=== PATIENT | female | born 1995 | race Caucasian/White ===

== ENCOUNTER 2017-03-24 17:02 | Emergency (ER) | payer BC ==
--- NOTE | 2017-03-24 19:14 | ED CLINICAL REPORT ---
Clinical Report - Physicians/Mid Levels [facility] [address] [place] [address] 03/24/2017 17:03 Patient: MARIA ELENA HENNESSY Time Seen: 17:19. Arrived- By private vehicle. Historian- patient. Note: . HISTORY OF PRESENT ILLNESS Chief Complaint: VOMITING and DIARRHEA. This started yesterday and is still present. It was gradual in onset and has been waxing/waning. The patient has had nausea. She has had vomiting. The vomiting has occurred numerous times. No blood-tinged emesis or frankly bloody emesis. She has had moderate loose stools. No bloody or blood-tinged diarrhea. No black stools, bloody stools, abdominal pain, history of possible bad food exposure or known contact with a sick individual. Has not recently been camping or on antibiotics. The illness is described as moderate. Similar symptoms previously: Recent medical care: Not recently seen/assessed. REVIEW OF SYSTEMS Last normal menstrual period- February 02. No fever, muscle aches, difficulty with urination, dark urine or headache. No dizziness, sore throat, cough, chest pain or difficulty breathing. No excessive urination, skin rash, jaundice, back pain or fainting episodes. The patient has missed periods. Currently . All systems otherwise negative, except as recorded above. PAST HISTORY PCP: [facility] PROBLEMS: Viral Disease. GERD. Depression. Anxiety Reaction. ADDITIONAL SURGERIES: Tonsillectomy & Adenoidectomy. [place] teeth removed. SOCIAL HISTORY Former smoker (quit 1 week ago). History of drug use: marijuana. No alcohol use. Residence: [place]. ADDITIONAL NOTES The nursing notes have been reviewed. PHYSICAL EXAM Vital Signs: 03/24/2017 17:09 BP: 110/64. HR: 59. RR: 18. O2 saturation: 100%. Temp: 97.9 F. Appearance: Alert. Oriented X3. Patient in mild distress. Eyes: Pupils equal, round and reactive to light. Eyes normal inspection. No pale conjunctivae or scleral icterus. ENT: Pharynx normal. No pharyngeal erythema or tonsillar exudate. The mucous membranes are not dry. Neck: Normal inspection. Neck supple. CVS: Normal heart rate and rhythm. Heart sounds normal. Pulses normal. Respiratory: No respiratory distress. Breath sounds normal. Abdomen: Soft. Mild tenderness diffusely. No guarding, rebound tenderness or Koehler's sign present. No mass. No rebound tenderness, distention, mass present or guarding. Back: Normal inspection. Skin: Skin warm and dry. Normal skin color. No rash. Normal skin turgor. Extremities: Extremities exhibit normal ROM. No lower extremity edema. Neuro: Oriented X 3. No motor deficit. No sensory deficit. LABS, X-RAYS, AND EKG Laboratory Tests: UA-Culture if indicated: (LONA: 03/24/2017 18:20) ( [facility] [place] 03/24/2017 18:39) Final results Test Result Flag Units (Reference) URINE COLOR YELLOW URINE APPEARANCE CLEAR URINE GLUCOSE NEGATIVE (NEGATIVE) URINE BILIRUBIN NEGATIVE (NEGATIVE) URINE KETONE 3+ (NEGATIVE) URINE SPECIFIC GRAVITY 1.020 (1.010-1.030) URINE PH 8.0 (5.0-8.0) URINE PROTEIN NEGATIVE (NEGATIVE) URINE UROBILINOGEN 1.0 EU/dL (0.2-1.0) URINE NITRITE NEGATIVE (NEGATIVE) URINE BLOOD NEGATIVE (NEGATIVE) URINE LEUK ESTERASE NEGATIVE (NEGATIVE) URINE RBC RARE rbc/hpf (0-1) URINE WBC 1-3 wbc/hpf (0-1) URINE EPITHELIAL CELLS 0-1 EPI/hpf (0-5) URINE BACTERIA MODERATE (2+ TO 3+) (NONE SEEN) URINE COMMENT CULTURE INDICATED 3+ MUCUSURINE CULTURES ARE SET-UP BASED ON THE FOLLOWING CRITERIA:POSITIVE NITRITEPOSITIVE LEUKOCYTE ESTERASEGREATER THAN 10 WHITE BLOOD CELLSMODERATE (2+) OR GREATER BACTERIA CBC w Diff: (LONA: 03/24/2017 17:25) ( [facility] [place] 03/24/2017 18:21) Final results Test Result Flag Units (Reference) WHITE BLOOD COUNT 16.4 H K/uL (4.5-11.5) RED BLOOD COUNT 4.09 M/uL (4.00-5.20) HEMOGLOBIN 12.6 gm/dL (12.0-16.0) HEMATOCRIT 37.1 % (36.0-46.0) MEAN CELL VOLUME 91 fL (80-100) MEAN CORPUSCULAR HGB 31 pg (26-34) MEAN CORPUSCULAR HGB CONC 34 g/dL (31-37) RED CELL DISTRIBUTION WIDTH 12.3 % (11.6-14.8) PLATELET COUNT 343 K/uL (150-400) POLY % 93 H % (50-75) BAND % 2 % (0-8) LYMPH 4 L % (25-40) MONO 1 L % (3-14) EOSINOPHIL % 0 % (0-4) BASOPHIL % 0 % (0-2) METAMYELOCYTE % 0 % (0-1) MYELOCYTE 0 % (0-1) OTHER CELL TYPE 0 RBC MORPHOLOGY NORMOCYTIC~~NORMOCHROMIC PT with INR: (LONA: 03/24/2017 17:25) ( [facility] 03/24/2017 17:48) Final results Test Result Flag Units (Reference) INR 1.0 (0.8-1.2) Low Intensity Therapy: INR 1.5-2.0 PT range 18.5-23.1Mod.Intensity Therapy: INR 2.0-3.0 PT range 23.1-31.5High Intensity Therapy: INR 2.5-3.5 PT range 27.4-35.5High Intensity Therapy 2: INR 3.0-4.0 PT range 31.5-39.3 CMP: (LONA: 03/24/2017 17:25) ( [facility] 03/24/2017 18:02) Final results Test Result Flag Units (Reference) GLUCOSE 125 H mg/dL (70-110) BUN 8 mg/dL (7-18) CREATININE 0.9 mg/dL (0.6-1.3) Estimated GFR >60 mL/min Estimated GFR- >60 mL/min Note: Persistent reduction over 3 months in eGFR<60 mL/min/1.73 m2 defines CKD. Patients with eGFR values>=60 mL/min/1.73 m2 may also have CKD if evidence ofpersistent proteinuria. Additional information may be foundat [email or web address].org. SODIUM 136 mmol/L (136-145) POTASSIUM 3.3 L mmol/L (3.5-5.1) CHLORIDE 103 mmol/L (98-107) CARBON DIOXIDE 23 mmol/L (21-32) CALCIUM 9.2 mg/dL (8.5-10.1) TOTAL PROTEIN 7.4 g/dL (6.4-8.2) ALBUMIN 4.3 g/dL (3.3-5.0) BILIRUBIN, TOTAL 0.4 mg/dL (0.0-1.0) ALKALINE PHOSPHATASE 53 U/L (46-116) AST (SGOT) 13 L U/L (15-37) ALT (SGPT) 17 U/L (12-78) LIPASE 76 U/L (73-393) AMYLASE 51 U/L (25-115) ETHYL ALCOHOL < 3.0 L mg/dL (3-10) . Microbiology: Urine culture ordered. Pulse Oximetry: 03/24/2017 17:09 O2 saturation: 100%. (FIO2 - room air). Interpretation: normal. PROGRESS AND PROCEDURES Course of Care: Normal Saline 2 liters IVPB given. Potassium Chloride 20 meq PO given. Zofran 4 mg + 4 mg IVP given. Reglan 10 mg IVP given. Ceftriaxone 1gm IVP given. Nonsurgical abdominal exam - in fact, only mild generalized tenderness (no pain). Leukocytosis is c/w demargination from stress reaction / vomiting, but will need to be monitored / rechecked closely. She will have next day follow up with her pcp at [facility] (has excellent access to care). Symptomatic treatment for now. This is not c/w appy or jil or other surgical process now. 18:41 03/24/17. Urine with moderate bacteriuria and in setting of , I will treat (may be contamination as pt is essentially asymptomatic) 19:14 03/24/17. Patient is stable. Physical exam findings are improved. Symptoms much better. 03/24/2017 18:56 BP: 108/54. HR: 93. RR: 18. O2 saturation: 100%. Temp: 98.6 F. 03/24/2017 18:56 BP: 108/54. HR: 93. RR: 18. O2 saturation: 100%. Temp: 98.6 F. Patient/family counseled. Old ED records reviewed. Disposition: Discharged. Condition: stable and improved. CLINICAL IMPRESSION Vomiting with nausea. Diarrhea First trimester . Moderate hyperemesis gravidarum less than 21 weeks with electrolyte imbalance. Acute urinary tract infection with cystitis. Chronic substance abuse- tobacco (cigarettes), marijuana. No intoxication. Hypokalemia Moderate leukocytosis. No bandemia or lymphocytosis. Clinical picture does not suggest appendicitis, bowel obstruction, cholecystitis, pancreatitis or ectopic . INSTRUCTIONS Do not work for three days. Drink plenty of fluids. Do not smoke. Seek medical help to quit smoking. Warnings: Further evaluation is necessary in order to recheck abnormal lab, obtain test results and conduct further tests. It is very important to follow up with a physician. SEDATIVE MEDICATION: You were given sedative medication during your visit. Do not drive or operate dangerous machinery. GENERAL WARNINGS: Return or contact your physician immediately if your condition worsens or changes unexpectedly, if not improving as expected, or if other problems arise. Prescription Medications: Zofran (orally disintegrating tablets) 4 mg: take 1-2 orally every 8 hours as needed for nausea and vomiting. Dispense ten (10). No refill. Substitution is permissible. Macrobid 100 mg: Take 1 capsule orally every 12 hours for 7 days. No refills. Substitution is permissible. OTC Medications: Take acetaminophen (Tylenol, Datril, etc.) according to label instructions. Available over the counter. Follow-up: Follow up with your doctor at [facility]. (Electronically signed by Reed Potter DO 03/24/2017 22:01)
--- NOTE | 2017-03-24 19:14 | ED CLINICAL REPORT ---
Clinical Report - Physicians/Mid Levels [facility] [address] [place] [address] 03/24/2017 17:03 Patient: MARIA ELENA HENNESSY Time Seen: 17:19. Arrived- By private vehicle. Historian- patient. Note: . HISTORY OF PRESENT ILLNESS Chief Complaint: VOMITING and DIARRHEA. This started yesterday and is still present. It was gradual in onset and has been waxing/waning. The patient has had nausea. She has had vomiting. The vomiting has occurred numerous times. No blood-tinged emesis or frankly bloody emesis. She has had moderate loose stools. No bloody or blood-tinged diarrhea. No black stools, bloody stools, abdominal pain, history of possible bad food exposure or known contact with a sick individual. Has not recently been camping or on antibiotics. The illness is described as moderate. Similar symptoms previously: Recent medical care: Not recently seen/assessed. REVIEW OF SYSTEMS Last normal menstrual period- February 02. No fever, muscle aches, difficulty with urination, dark urine or headache. No dizziness, sore throat, cough, chest pain or difficulty breathing. No excessive urination, skin rash, jaundice, back pain or fainting episodes. The patient has missed periods. Currently . All systems otherwise negative, except as recorded above. PAST HISTORY PCP: [facility] PROBLEMS: Viral Disease. GERD. Depression. Anxiety Reaction. ADDITIONAL SURGERIES: Tonsillectomy & Adenoidectomy. [place] teeth removed. SOCIAL HISTORY Former smoker (quit 1 week ago). History of drug use: marijuana. No alcohol use. Residence: [place]. ADDITIONAL NOTES The nursing notes have been reviewed. PHYSICAL EXAM Vital Signs: 03/24/2017 17:09 BP: 110/64. HR: 59. RR: 18. O2 saturation: 100%. Temp: 97.9 F. Appearance: Alert. Oriented X3. Patient in mild distress. Eyes: Pupils equal, round and reactive to light. Eyes normal inspection. No pale conjunctivae or scleral icterus. ENT: Pharynx normal. No pharyngeal erythema or tonsillar exudate. The mucous membranes are not dry. Neck: Normal inspection. Neck supple. CVS: Normal heart rate and rhythm. Heart sounds normal. Pulses normal. Respiratory: No respiratory distress. Breath sounds normal. Abdomen: Soft. Mild tenderness diffusely. No guarding, rebound tenderness or Koehler's sign present. No mass. No rebound tenderness, distention, mass present or guarding. Back: Normal inspection. Skin: Skin warm and dry. Normal skin color. No rash. Normal skin turgor. Extremities: Extremities exhibit normal ROM. No lower extremity edema. Neuro: Oriented X 3. No motor deficit. No sensory deficit. LABS, X-RAYS, AND EKG Laboratory Tests: UA-Culture if indicated: (LONA: 03/24/2017 18:20) ( [facility] [place] 03/24/2017 18:39) Final results Test Result Flag Units (Reference) URINE COLOR YELLOW URINE APPEARANCE CLEAR URINE GLUCOSE NEGATIVE (NEGATIVE) URINE BILIRUBIN NEGATIVE (NEGATIVE) URINE KETONE 3+ (NEGATIVE) URINE SPECIFIC GRAVITY 1.020 (1.010-1.030) URINE PH 8.0 (5.0-8.0) URINE PROTEIN NEGATIVE (NEGATIVE) URINE UROBILINOGEN 1.0 EU/dL (0.2-1.0) URINE NITRITE NEGATIVE (NEGATIVE) URINE BLOOD NEGATIVE (NEGATIVE) URINE LEUK ESTERASE NEGATIVE (NEGATIVE) URINE RBC RARE rbc/hpf (0-1) URINE WBC 1-3 wbc/hpf (0-1) URINE EPITHELIAL CELLS 0-1 EPI/hpf (0-5) URINE BACTERIA MODERATE (2+ TO 3+) (NONE SEEN) URINE COMMENT CULTURE INDICATED 3+ MUCUSURINE CULTURES ARE SET-UP BASED ON THE FOLLOWING CRITERIA:POSITIVE NITRITEPOSITIVE LEUKOCYTE ESTERASEGREATER THAN 10 WHITE BLOOD CELLSMODERATE (2+) OR GREATER BACTERIA CBC w Diff: (LONA: 03/24/2017 17:25) ( [facility] [place] 03/24/2017 18:21) Final results Test Result Flag Units (Reference) WHITE BLOOD COUNT 16.4 H K/uL (4.5-11.5) RED BLOOD COUNT 4.09 M/uL (4.00-5.20) HEMOGLOBIN 12.6 gm/dL (12.0-16.0) HEMATOCRIT 37.1 % (36.0-46.0) MEAN CELL VOLUME 91 fL (80-100) MEAN CORPUSCULAR HGB 31 pg (26-34) MEAN CORPUSCULAR HGB CONC 34 g/dL (31-37) RED CELL DISTRIBUTION WIDTH 12.3 % (11.6-14.8) PLATELET COUNT 343 K/uL (150-400) POLY % 93 H % (50-75) BAND % 2 % (0-8) LYMPH 4 L % (25-40) MONO 1 L % (3-14) EOSINOPHIL % 0 % (0-4) BASOPHIL % 0 % (0-2) METAMYELOCYTE % 0 % (0-1) MYELOCYTE 0 % (0-1) OTHER CELL TYPE 0 RBC MORPHOLOGY NORMOCYTIC~~NORMOCHROMIC PT with INR: (LONA: 03/24/2017 17:25) ( [facility] 03/24/2017 17:48) Final results Test Result Flag Units (Reference) INR 1.0 (0.8-1.2) Low Intensity Therapy: INR 1.5-2.0 PT range 18.5-23.1Mod.Intensity Therapy: INR 2.0-3.0 PT range 23.1-31.5High Intensity Therapy: INR 2.5-3.5 PT range 27.4-35.5High Intensity Therapy 2: INR 3.0-4.0 PT range 31.5-39.3 CMP: (LONA: 03/24/2017 17:25) ( [facility] 03/24/2017 18:02) Final results Test Result Flag Units (Reference) GLUCOSE 125 H mg/dL (70-110) BUN 8 mg/dL (7-18) CREATININE 0.9 mg/dL (0.6-1.3) Estimated GFR >60 mL/min Estimated GFR- >60 mL/min Note: Persistent reduction over 3 months in eGFR<60 mL/min/1.73 m2 defines CKD. Patients with eGFR values>=60 mL/min/1.73 m2 may also have CKD if evidence ofpersistent proteinuria. Additional information may be foundat [email or web address].org. SODIUM 136 mmol/L (136-145) POTASSIUM 3.3 L mmol/L (3.5-5.1) CHLORIDE 103 mmol/L (98-107) CARBON DIOXIDE 23 mmol/L (21-32) CALCIUM 9.2 mg/dL (8.5-10.1) TOTAL PROTEIN 7.4 g/dL (6.4-8.2) ALBUMIN 4.3 g/dL (3.3-5.0) BILIRUBIN, TOTAL 0.4 mg/dL (0.0-1.0) ALKALINE PHOSPHATASE 53 U/L (46-116) AST (SGOT) 13 L U/L (15-37) ALT (SGPT) 17 U/L (12-78) LIPASE 76 U/L (73-393) AMYLASE 51 U/L (25-115) ETHYL ALCOHOL < 3.0 L mg/dL (3-10) . Microbiology: Urine culture ordered. Pulse Oximetry: 03/24/2017 17:09 O2 saturation: 100%. (FIO2 - room air). Interpretation: normal. PROGRESS AND PROCEDURES Course of Care: Normal Saline 2 liters IVPB given. Potassium Chloride 20 meq PO given. Zofran 4 mg + 4 mg IVP given. Reglan 10 mg IVP given. Ceftriaxone 1gm IVP given. Nonsurgical abdominal exam - in fact, only mild generalized tenderness (no pain). Leukocytosis is c/w demargination from stress reaction / vomiting, but will need to be monitored / rechecked closely. She will have next day follow up with her pcp at [facility] (has excellent access to care). Symptomatic treatment for now. This is not c/w appy or jil or other surgical process now. 18:41 03/24/17. Urine with moderate bacteriuria and in setting of , I will treat (may be contamination as pt is essentially asymptomatic) 19:14 03/24/17. Patient is stable. Physical exam findings are improved. Symptoms much better. 03/24/2017 18:56 BP: 108/54. HR: 93. RR: 18. O2 saturation: 100%. Temp: 98.6 F. 03/24/2017 18:56 BP: 108/54. HR: 93. RR: 18. O2 saturation: 100%. Temp: 98.6 F. Patient/family counseled. Old ED records reviewed. Disposition: Discharged. Condition: stable and improved. CLINICAL IMPRESSION Vomiting with nausea. Diarrhea First trimester . Moderate hyperemesis gravidarum less than 21 weeks with electrolyte imbalance. Acute urinary tract infection with cystitis. Chronic substance abuse- tobacco (cigarettes), marijuana. No intoxication. Hypokalemia Moderate leukocytosis. No bandemia or lymphocytosis. Clinical picture does not suggest appendicitis, bowel obstruction, cholecystitis, pancreatitis or ectopic . INSTRUCTIONS Do not work for three days. Drink plenty of fluids. Do not smoke. Seek medical help to quit smoking. Warnings: Further evaluation is necessary in order to recheck abnormal lab, obtain test results and conduct further tests. It is very important to follow up with a physician. SEDATIVE MEDICATION: You were given sedative medication during your visit. Do not drive or operate dangerous machinery. GENERAL WARNINGS: Return or contact your physician immediately if your condition worsens or changes unexpectedly, if not improving as expected, or if other problems arise. Prescription Medications: Zofran (orally disintegrating tablets) 4 mg: take 1-2 orally every 8 hours as needed for nausea and vomiting. Dispense ten (10). No refill. Substitution is permissible. Macrobid 100 mg: Take 1 capsule orally every 12 hours for 7 days. No refills. Substitution is permissible. OTC Medications: Take acetaminophen (Tylenol, Datril, etc.) according to label instructions. Available over the counter. Follow-up: Follow up with your doctor at [facility]. (Electronically signed by Reed Potter DO 03/24/2017 22:01)
--- NOTE | 2017-03-24 19:15 | ED ORDER SUMMARY ---
..... Patient: MARIA ELENA HENNESSY OrderSheet [facility] VisitID: [id number] [place] [address] 21y, F Registration Date/Time: 03/24/2017 ORDER SHEET Weight: 58.9 kg (stated) Allergies: No Known Drug Allergy GENERAL ORDERS: CBC w Diff Urgent ([facility] (Ack 17:39 PWeiler ER Tech1) (17:40 JSimbeck R.N.) CMP Urgent (17:03/24/2017 [facility] (Ack 17:39 PWeiler ER Tech1) (17:40 JSimbeck R.N.) UA-Culture if indicated [facility]2017 [facility] (Ack 17:39 PWeiler ER Tech1) (18:28 ALawrence ER Tech1) Amylase Urgent (17:03/24/2017 [facility]) (Ack 17:39 PWeiler ER Tech1) (17:40 JSimbeck R.N.) Lipase Urgent (17:03/24/2017 [facility] (Ack 17:39 PWeiler ER Tech1) (17:40 JSimbeck R.N.) Ethyl Alcohol Urgent (17:03/24/2017 [facility] (Ack 17:39 PWeiler ER Tech1) (17:40 JSimbeck R.N.) Urine Urgent (17:03/24/2017 [facility] (Ack 17:39 PWeiler ER Tech1) (18:28 ALawrence ER Tech1) Urine Drug Screen Urgent (17:03/24/2017 [facility] (Ack 17:39 PWeiler ER Tech1) (18:28 ALawrence ER Tech1) PT with INR Urgent (17:03/24/2017 [facility] (Ack 17:39 PWeiler ER Tech1) (17:40 JSimbeck R.N.) NPO (17:03/24/2017 [facility]) (17:40 MWinterer R.N.) (17:41 Johnathon R.N.) (Cancelled: Other18:05 [facility]) Serum Quantitative Urgent (18:01 03/24/2017 [facility]) (Ack 18:03 PWeiler ER Tech1) (18:28 ALawrence ER Tech1) MEDICATION ORDERS: Potassium Chloride PO 20 meq (NOW) (18:00 03/24/2017 [facility]) (18:04 LWhalen R.N.) IV FLUIDS: Zofran IV 4 mg (NOW) (17:20 03/24/2017 [facility]) (17:28 LWhalen R.N.) IV NS : initial bolus 1000 mL (1000 mL/hr), then 250 mL/hr for X2 (NOW) (17:21 03/24/2017 [facility]) (17:28 LWhalen R.N.) Zofran IV 4 mg (NOW) (18:09 03/24/2017 [facility]) (18:18 LWhalen R.N.) Reglan IV 10 mg (NOW) (18:09 03/24/2017 [facility]) (18:18 LWhalen R.N.) Ceftriaxone IV 1 gm/50mL (NOW) (18:40 03/24/2017 [facility]) (18:45 LWhalen R.N.) ORDER SHEET NOTES: [Electronically signed by Sheriff Zbigniew Cespedes (19:33 03/24/2017)] [Electronically signed by Reed Potter DO (22:01 03/24/2017)] [Electronically locked/signed by Sheriff Zbigniew Cespedes (19:33 03/24/2017)]
--- NOTE | 2017-03-24 19:15 | ED NURSING NOTES ---
Clinical Report - Nurses [facility] [address] [place] [address] 03/24/2017 17:03 Patient: MARIA ELENA HENNESSY TRIAGE Triage time 17:Mar 24 2017. Acuity: LEVEL 3. Chief Complaint: NAUSEA, VOMITING and DIARRHEA. PAUL COMA SCORE: [place] Coma Scale: 15- eyes open spontaneously (4); best verbal response- oriented x 4 (5); best motor response- obeys commands (6). --17:13 Renny Haddad R.N. 17:09 03/24/17. BP: 110/64. HR: 59. RR: 18. O2 saturation: 100%. Temp: 97.9 F. Pain level now 6/10. --17:13 Renny Haddad R.N. Weight: 58.9 kg stated. Height/Length: 65 inches Per Patient. BMI: 21.6. Growth Chart Percentile: Weight: 55.2%. Height/Length: 60.5%. --17:10 Renny Haddad R.N. Medications None. --17:10 Renny Haddad R.N. Allergies No Known Drug Allergy. --17:10 Renny Haddad R.N. History Arrived by private vehicle. Historian: patient. Accompanied by family. This started yesterday. She has had nausea, vomiting and diarrhea. No constipation, abdominal pain or fever. Last oral intake by patient was dinner. Treatment BEHAVIOR SUPPORT SPECIALIST: None. PAST MEDICAL HX: Gastroesophageal reflux disease. Immunizations: up-to-date. Last normal menstrual period- February 02. SOCIAL HX: Former smoker (quit a weeks ago). History of drug use: marijuana. No alcohol use. No recent travel. No known contact with a sick individual. SELF HARM ASSESSMENT: A self harm assessment was performed. The patient answered "yes" to the question "Have you recently felt down, depressed, or hopeless?" and "no" to the question "Do you have thoughts of harming or killing yourself?". FALL RISK ASSESSMENT: Fall risk assessment completed. No fall risk identified. NUTRITIONAL RISK ASSESSMENT: The nutritional risk assessment revealed no deficiencies. FUNCTIONAL ASSESSMENT: Functional assessment: no impairments noted. LEARNING NEEDS ASSESSMENT: The learning needs assessment revealed no barriers. ABUSE ASSESSMENT: Abuse assessment: (yes) The patient was asked "Do you feel safe in your home?". SKIN INTEGRITY ASSESSMENT: Skin integrity risk assessment completed. No skin integrity risk identified. --17:13 Renny Haddad R.N. PROBLEMS: Viral Disease. GERD. Depression. Anxiety Reaction. --17:10 Renny Haddad R.N. ADDITIONAL SURGERIES: Tonsillectomy & Adenoidectomy. --17:10 Renny Haddad R.N. Frakes teeth 2016. --17:26 Renny Haddad R.N. The following entry was struck by Renny Haddad R.N., 17:26 Reason - other <<STRICKEN ENTRY-- Frakes teeth removed a week ago. --20:51 Renny Haddad R.N. --END STRIKE>>. Interventions ID band on patient. --17:13 Renny Haddad R.N. PHYSICAL ASSESSMENT Ambulatory to room. ( c/o mid lower back pain.). GENERAL / NEURO / PSYCH: Alert. Oriented X 4. Appears anxious. HEENT: Mucous membranes are pink. RESPIRATORY: Respirations not labored. Breath sounds within normal limits. CVS: Normal sinus rhythm noted. Capillary refill less than 2 seconds. GI / : The patient has had nausea. Emesis noted. Abdomen soft and nontender. Bowel sounds within normal limits. Normal genitalia. Stool color normal. Stool heme negative. (POC test reference range: negative). SKIN: Skin is warm and dry. --17:14 Renny Haddad R.N. NURSING PROGRESS NOTES The initial plan of care for this patient includes an assessment with efforts to address patient positioning, appropriate ambient lighting and comfortable environmental temperature. Pulse oximeter and NIBP monitor placed on patient. Patient gowned. Head of bed elevated 60 degrees. Reassurance given. Call light placed in reach. Side rails up x 1. Bed placed in lowest position. Brakes of bed on. --17:14 Renny Haddad R.N. 17:17 03/24/2017 Site #1 started via IV in the right antecubital space with an 20g angiocath, with aseptic technique and good blood return; one attempt. Blood drawn: rainbow set. Labeled in the presence of the patient and sent to the lab. Saline lock flushed with 10 mL saline. --17:27 Renny Haddad R.N. 17:23 03/24/2017 Zofran (Ondansetron HCl) IVP 4 mg given over 2 minute(s) via site #1. Allergies verified and confirmed 5 rights. IV patency established. IV site checked: no pain, redness, or swelling. IV flushed thoroughly pre- and post-medication administration. --17:28 Renny Haddad R.N. 17:28 03/24/2017 Started bag #1 1000 mL IV Fluids IV NS (Saline); at 1000 mL/hr over 1 hour(s) via site #1 via IV pump. Allergies verified and confirmed 5 rights. IV patency established. IV site checked: no pain, redness, or swelling. IV flushed thoroughly pre- and post-medication administration. --17:28 Renny Haddad R.N. 17:52 03/24/2017 Started bag #1 1000 mL IV Fluids IV NS (Saline); at 250 mL/hr over 4 hour(s) via site #1 via IV pump. Allergies verified and confirmed 5 rights. IV patency established. IV site checked: no pain, redness, or swelling. IV flushed thoroughly pre- and post-medication administration. --17:52 Renny Haddad R.N. 17:52 03/24/2017 IV Fluids IV NS Discontinued: bag #1 infused. Total amount infused: 1000 mL. IV patency established. IV site checked: no pain, redness, or swelling. IV flushed thoroughly. --17:52 Renny Haddad R.N. 18:04 03/24/2017 Potassium Chloride (Potassium Chloride ER) PO Tablets 20 meq given. Allergies verified and confirmed 5 rights. --18:04 Renny Haddad R.N. 18:18 03/24/2017 Zofran (Ondansetron HCl) IVP 4 mg given over 2 minute(s) via site #1. Allergies verified and confirmed 5 rights. IV patency established. IV site checked: no pain, redness, or swelling. IV flushed thoroughly pre- and post-medication administration. --18:18 Renny Haddad R.N. 18:18 03/24/2017 Reglan (Metoclopramide HCl) IVP 10 mg given over 2 minute(s) via site #1. Allergies verified and confirmed 5 rights. IV patency established. IV site checked: no pain, redness, or swelling. IV flushed thoroughly pre- and post-medication administration. --18:18 Renny Haddad R.N. 18:45 03/24/2017 Started 1 gm of Ceftriaxone IVPB in bag #1 50 mL; at 100 mL/hr over 1 hour(s) via site #1 via IV pump. Allergies verified and confirmed 5 rights. IV patency established. IV site checked: no pain, redness, or swelling. IV flushed thoroughly pre- and post-medication administration. --18:45 Renny Haddad R.N. DISPOSITION / DISCHARGE 18:56 03/24/17. BP: 108/54. HR: 93. RR: 18. O2 saturation: 100%. Temp: 98.6 F. Pain level now 2/10. --18:57 Renny Haddad R.N. Condition at departure: stable. No learning barriers present. Discharge instructions provided and reviewed with the patient. Reviewed medication(s) side effects, precautions, dosing and course information. Prescription(s) given to the parent. Patient verbalized understanding. Written instructions provided in Guamanian. The patient was discharged by the physician. She was discharged home and accompanied by family. She left the Emergency Department ambulatory and via private vehicle. Family member driving. --19:32 Sheriff Cespedes R.N. Locked/Released at 03/24/2017 19:33 by Sheriff Cespedes R.N.
--- NOTE | 2017-03-24 19:15 | ED ORDER SUMMARY ---
..... Patient: MARIA ELENA HENNESSY OrderSheet [facility] VisitID: [id number] [place] [address] 21y, F Registration Date/Time: 03/24/2017 ORDER SHEET Weight: 58.9 kg (stated) Allergies: No Known Drug Allergy GENERAL ORDERS: CBC w Diff [facility] (Ack 17:39 PWeiler ER Tech1) (17:40 JSimbeck R.N.) CMP Urgent (17:03/24/2017 [facility] (Ack 17:39 PWeiler ER Tech1) (17:40 JSimbeck R.N.) UA-Culture if indicated [facility] ([facility]ck 17:39 PWeiler ER Tech1) (18:28 ALawrence ER Tech1) Amylase Urgent (17:03/24/2017 [facility] (Ack 17:39 PWeiler ER Tech1) (17:40 JSimbeck R.N.) Lipase Urgent (17:03/24/2017 [facility] (Ack 17:39 PWeiler ER Tech1) (17:40 JSimbeck R.N.) Ethyl Alcohol Urgent (17:03/24/2017 [facility] (Ack 17:39 PWeiler ER Tech1) (17:40 JSimbeck R.N.) Urine Urgent ([facility] (Ack 17:39 PWeiler ER Tech1) (18:28 ALawrence ER Tech1) Urine Drug Screen Urgent (17:03/24/[facility] (Ack 17:39 PWeiler ER Tech1) (18:28 ALawrence ER Tech1) PT with INR Urgent (17:03/24/[facility] (Ack 17:39 PWeiler ER Tech1) (17:40 JSimbeck R.N.) NPO (17:03/24/[facility]) (17:40 MWinterer R.N.) (17:41 Johnathon R.N.) (Cancelled: Other18:05 [facility]) Serum Quantitative Urgent (18:01 03/24/2017 [facility]) (Ack 18:03 PWeiler ER Tech1) (18:28 ALawrence ER Tech1) MEDICATION ORDERS: Potassium Chloride PO 20 meq (NOW) (18:00 03/24/2017 [facility]) (18:04 LWhalen R.N.) IV FLUIDS: Zofran IV 4 mg (NOW) (17:20 03/24/2017 [facility]) (17:28 LWhalen R.N.) IV NS : initial bolus 1000 mL (1000 mL/hr), then 250 mL/hr for X2 (NOW) (17:21 03/24/2017 [facility]) (17:28 LWhalen R.N.) Zofran IV 4 mg (NOW) (18:09 03/24/2017 [facility]) (18:18 LWhalen R.N.) Reglan IV 10 mg (NOW) (18:09 03/24/2017 [facility]) (18:18 LWhalen R.N.) Ceftriaxone IV 1 gm/50mL (NOW) (18:40 03/24/2017 [facility]) (18:45 LWhalen R.N.) ORDER SHEET NOTES: [Electronically signed by Sheriff Zbigniew Cespedes (19:33 03/24/2017)] [Electronically signed by Reed Potter DO (22:01 03/24/2017)] [Electronically locked/signed by Sheriff Zbigniew Cespedes (19:33 03/24/2017)]
--- NOTE | 2017-03-24 22:01 | ED MED RECONCILIATION SUMMARY ---
Patient: MARIA ELENA HENNESSY Medication Reconciliation Report [facility] VisitID: [id number] [place] [address] 21y, F Registration Date/Time: 03/24/2017 Weight: 58.9 kg Height/Length: 65 in. BMI: 21.6 ALLERGIES: No Known Drug Allergy The patient's Home Medications are listed below: NONE. The source(s) of the original Home Medication information: Not obtained. The following Medications were given to the patient in the Emergency Department: IV NS IV Fluids bolus 0, then 1000 mL/hr, administered: 03/24/2017 5:28:00 PM Zofran [IVP] IVP 4 mg, administered: 03/24/2017 5:23:00 PM IV NS IV Fluids bolus 0, then 250 mL/hr, administered: 03/24/2017 5:52:00 PM Potassium Chloride [PO] PO 20 meq, administered: 03/24/2017 6:04:00 PM Zofran [IVP] IVP 4 mg, administered: 03/24/2017 6:18:00 PM Reglan [IVP] IVP 10 mg, administered: 03/24/2017 6:18:00 PM Ceftriaxone [IVPB] IVPB bolus 0, then 1 gm 100 mL/hr, administered: 03/24/2017 6:45:00 PM The following Medications were prescribed to the patient: Take acetaminophen (Tylenol, Datril, etc.) according to label instructions. Available over the counter. -- Reed Potter DO Zofran (orally disintegrating tablets) 4 mg: take 1-2 orally every 8 hours as needed for nausea and vomiting. Dispense ten (10). No refill. Substitution is permissible. -- Reed Potter DO Macrobid 100 mg: Take 1 capsule orally every 12 hours for 7 days. No refills. Substitution is permissible. -- Reed Potter DO
--- NOTE | 2017-03-24 22:01 | ED MAR SUMMARY ---
..... Medication Administration Record [facility] [address] [facility] [facility] [place] [address] Patient: MARIA ELENA HENNESSY Visit ID: [id number] 21y, F Weight: 58.9 kg Height/Length: 65 in BMI: 21.6 ALLERGIES: No Known Drug Allergy Given 17:03/24/2017 Renny Haddad R.N. Medication Administered: ZOFRAN [IVP] (ONDANSETRON HCL), Dose: 4 mg IVP over 2 minute(s), Site: #1 right AC. Medication Ordered: Zofran IV 4 mg (NOW). Start 17:28 03/24/2017 Renny Haddad R.N., Stop 17:52 03/24/2017 Renny Haddad R.N. Medication Administered: IV NS (SALINE), Dose: IV Fluids over 1 hour(s), Rate: 1000 mL/hr, Dispensed: 1000 mL bag, Site: #1 right AC. Medication Ordered: IV NS : initial bolus 1000 mL (1000 mL/hr), then 250 mL/hr for X2 (NOW). Start 17:03/24/2017 Renny Haddad R.N. Medication Administered: IV NS (SALINE), Dose: IV Fluids over 4 hour(s), Rate: 250 mL/hr, Dispensed: 1000 mL bag, Site: #1 right AC. Medication Ordered: IV NS : initial bolus 1000 mL (1000 mL/hr), then 250 mL/hr for X2 (NOW). Given 18:03/24/2017 Renny Haddad R.N. Medication Administered: POTASSIUM CHLORIDE [PO] (POTASSIUM CHLORIDE ER), Dose: 20 meq Tablets PO. Medication Ordered: Potassium Chloride PO 20 meq (NOW). Given 18:03/24/2017 Renny Haddad R.N. Medication Administered: ZOFRAN [IVP] (ONDANSETRON HCL), Dose: 4 mg IVP over 2 minute(s), Site: #1 right AC. Medication Ordered: Zofran IV 4 mg (NOW). Given 18:03/24/2017 Renny Haddad R.N. Medication Administered: REGLAN [IVP] (METOCLOPRAMIDE HCL), Dose: 10 mg IVP over 2 minute(s), Site: #1 right AC. Medication Ordered: Reglan IV 10 mg (NOW). Start 18:45 03/24/2017 Renny Haddad RRafiN. Medication Administered: CEFTRIAXONE [IVPB], Dose: 1 gm IVPB over 1 hour(s), Rate: 100 mL/hr, Dispensed: 50 mL bag, Site: #1 right AC. Medication Ordered: Ceftriaxone IV 1 gm/50mL (NOW).
--- NOTE | 2017-03-24 22:01 | ED MED RECONCILIATION SUMMARY ---
Patient: MARIA ELENA HENNESSY Medication Reconciliation Report [facility] VisitID: [id number] [place] [address] 21y, F Registration Date/Time: 03/24/2017 Weight: 58.9 kg Height/Length: 65 in. BMI: 21.6 ALLERGIES: No Known Drug Allergy The patient's Home Medications are listed below: NONE. The source(s) of the original Home Medication information: Not obtained. The following Medications were given to the patient in the Emergency Department: IV NS IV Fluids bolus 0, then 1000 mL/hr, administered: 03/24/2017 5:28:00 PM Zofran [IVP] IVP 4 mg, administered: 03/24/2017 5:23:00 PM IV NS IV Fluids bolus 0, then 250 mL/hr, administered: 03/24/2017 5:52:00 PM Potassium Chloride [PO] PO 20 meq, administered: 03/24/2017 6:04:00 PM Zofran [IVP] IVP 4 mg, administered: 03/24/2017 6:18:00 PM Reglan [IVP] IVP 10 mg, administered: 03/24/2017 6:18:00 PM Ceftriaxone [IVPB] IVPB bolus 0, then 1 gm 100 mL/hr, administered: 03/24/2017 6:45:00 PM The following Medications were prescribed to the patient: Take acetaminophen (Tylenol, Datril, etc.) according to label instructions. Available over the counter. -- Reed Potter DO Zofran (orally disintegrating tablets) 4 mg: take 1-2 orally every 8 hours as needed for nausea and vomiting. Dispense ten (10). No refill. Substitution is permissible. -- Reed Potter DO Macrobid 100 mg: Take 1 capsule orally every 12 hours for 7 days. No refills. Substitution is permissible. -- Reed Potter DO
--- NOTE | 2017-03-24 22:01 | ED MAR SUMMARY ---
..... Medication Administration Record [facility] [address] [place] [address] Patient: MARIA ELENA HENNESSY Visit ID: [id number] 21y, F Weight: 58.9 kg Height/Length: 65 in BMI: 21.6 ALLERGIES: No Known Drug Allergy Given 17:03/24/2017 Renny Haddad R.N. Medication Administered: ZOFRAN [IVP] (ONDANSETRON HCL), Dose: 4 mg IVP over 2 minute(s), Site: #1 right AC. Medication Ordered: Zofran IV 4 mg (NOW). Start 17:28 03/24/2017 Renny Haddad R.N., Stop 17:52 03/24/2017 Renny Haddad R.N. Medication Administered: IV NS (SALINE), Dose: IV Fluids over 1 hour(s), Rate: 1000 mL/hr, Dispensed: 1000 mL bag, Site: #1 right AC. Medication Ordered: IV NS : initial bolus 1000 mL (1000 mL/hr), then 250 mL/hr for X2 (NOW). Start 17:03/24/2017 Renny Haddad R.N. Medication Administered: IV NS (SALINE), Dose: IV Fluids over 4 hour(s), Rate: 250 mL/hr, Dispensed: 1000 mL bag, Site: #1 right AC. Medication Ordered: IV NS : initial bolus 1000 mL (1000 mL/hr), then 250 mL/hr for X2 (NOW). Given 18:03/24/2017 Renny Haddad R.N. Medication Administered: POTASSIUM CHLORIDE [PO] (POTASSIUM CHLORIDE ER), Dose: 20 meq Tablets PO. Medication Ordered: Potassium Chloride PO 20 meq (NOW). Given 18:03/24/2017 Renny Haddad R.N. Medication Administered: ZOFRAN [IVP] (ONDANSETRON HCL), Dose: 4 mg IVP over 2 minute(s), Site: #1 right AC. Medication Ordered: Zofran IV 4 mg (NOW). Given 18:03/24/2017 Renny Haddad R.N. Medication Administered: REGLAN [IVP] (METOCLOPRAMIDE HCL), Dose: 10 mg IVP over 2 minute(s), Site: #1 right AC. Medication Ordered: Reglan IV 10 mg (NOW). Start 18:45 03/24/2017 Renny Haddad RRafiN. Medication Administered: CEFTRIAXONE [IVPB], Dose: 1 gm IVPB over 1 hour(s), Rate: 100 mL/hr, Dispensed: 50 mL bag, Site: #1 right AC. Medication Ordered: Ceftriaxone IV 1 gm/50mL (NOW).
--- NOTE | 2017-03-24 22:01 | ED DISCHARGE INSTRUCTIONS ---
Patient: MARIA ELENA HENNESSY General Instructions [facility] VisitID: [id number] [place] [address] 21y, F Registration Date/Time: 03/24/2017 Vomiting with nausea. Diarrhea First trimester . Moderate hyperemesis gravidarum less than 21 weeks with electrolyte imbalance. Acute urinary tract infection with cystitis. Chronic substance abuse- tobacco (cigarettes), marijuana. No intoxication. Hypokalemia Moderate leukocytosis. No bandemia or lymphocytosis. INSTRUCTIONS Do not work for three days. Drink plenty of fluids. Do not smoke. Seek medical help to quit smoking. Warnings: Further evaluation is necessary in order to recheck abnormal lab, obtain test results and conduct further tests. It is very important to follow up with a physician. SEDATIVE MEDICATION: You were given sedative medication during your visit. Do not drive or operate dangerous machinery. GENERAL WARNINGS: Return or contact your physician immediately if your condition worsens or changes unexpectedly, if not improving as expected, or if other problems arise. Prescription Medications: Zofran (orally disintegrating tablets) 4 mg: take 1-2 orally every 8 hours as needed for nausea and vomiting. Dispense ten (10). No refill. Substitution is permissible. Macrobid 100 mg: Take 1 capsule orally every 12 hours for 7 days. No refills. Substitution is permissible. OTC Medications: Take acetaminophen (Tylenol, Datril, etc.) according to label instructions. Available over the counter. Follow-up: Follow up with your doctor at [facility]. ADDITIONAL INFORMATION Vomiting [6Yr-Adult] Vomiting is a common symptom that may be due to different causes. These include gastroenteritis ("stomach flu"), food poisoning and gastritis. There are other more serious causes of vomiting which may be hard to diagnose early in the illness. Therefore, it is important to watch for the warning signs listed below. The main danger from repeated vomiting is dehydration. This is due to excess loss of water and minerals from the body. When this occurs, body fluids must be replaced. Home Care: If symptoms are severe, rest at home for the next 24 hours. You may use acetaminophen (Tylenol) or ibuprofen (Motrin, Advil) to control fever, unless another medicine was prescribed. [NOTE : If you have chronic liver or kidney disease or ever had a stomach ulcer or GI bleeding, talk with your doctor before using these medicines.] (Aspirin should never be used in anyone under 18 years of age who is ill with a fever. It may cause severe liver damage.) Avoid tobacco and alcohol use, which may worsen your symptoms. If medicines for vomiting were prescribed, take as directed. Once vomiting stops, then follow these guidelines: During The First 12-24 Hours follow the diet below: FRUIT JUICES: Apple, grape juice, clear fruit drinks, and electrolyte replacement drinks. BEVERAGES: Soft drinks without caffeine; mineral water (plain or flavored), decaffeinated tea and coffee. SOUPS: Clear broth, consomm and bouillon DESSERTS: Plain gelatin, popsicles and fruit juice bars. As you feel better, you may add 6-8 ounces of yogurt per day. During The Next 24 Hours you may add the following to the above: Hot cereal, plain toast, bread, rolls, crackers Plain noodles, rice, mashed potatoes, chicken noodle or rice soup Unsweetened canned fruit (avoid pineapple), bananas Limit caffeine and chocolate. No spices or seasonings except salt. During The Next 24 Hours Gradually resume a normal diet, as you feel better and your symptoms lessen. Follow Up with your doctor as advised if you are not improving over the next 2-3 days. Get Prompt Medical Attention if any of the following occur: Constant right-sided lower abdominal pain or increasing general abdominal pain Continued vomiting (unable to keep liquids down) for 24 hours Frequent diarrhea (more than 5 times a day); blood (red or black color) or mucus in diarrhea Reduced urine output or extreme thirst Weakness, dizziness or fainting Unusually drowsy or confused Fever of 100.4F (38C) oral or higher, not better with fever medication Yellow color of the eyes or skin Diarrhea, Uncertain Cause (Adult, Report Pending) Diarrhea has several possible causes. Commonstomach fluis caused by a virus. Food poisoning, bacteria or parasites are other causes for diarrhea. Only diarrhea caused by bacteria or parasites requires treatment with an antibiotic. Diarrhea from a virus or food poisoning improves with simple home treatment. A stool sample is needed to make the diagnosis of an infection with bacteria or parasites. Up to three stool specimens may be required to diagnose This may take up to two days to get the result. It may be necessary to wait until the stool test is complete to make the diagnosis and select the best antibiotic to prescribe. Home Care: If symptoms are severe, rest at home for the next 24 hours or until you are feeling better. You may use acetaminophen (Tylenol) or ibuprofen (Motrin, Advil) to control fever, unless another medicine was prescribed. [NOTE: If you have chronic liver or kidney disease or ever had a stomach ulcer or GI bleeding, talk with your doctor before using these medicines.] (Aspirin should never be used in anyone under 18 years of age who is ill with a fever. It may cause severe liver damage.) Avoid tobacco, caffeine and alcohol, which may worsen your symptoms. If anti-diarrhea medicine was prescribed, take this only as directed. Sometimes anti-diarrhea medicine can make your condition worse if the cause is an infectious diarrhea. Therefore, anti-diarrhea medicine should not be taken for this condition unless advised by your doctor. During The First 12-24 Hours follow the diet below: BEVERAGES: Sport drinks like Gatorade, soft drinks without caffeine; eliot eliane, mineral water (plain or flavored), decaffeinated tea and coffee. SOUPS: Clear broth, consomm and bouillon DESSERTS: Plain gelatin (Jell-O), popsicles and fruit juice bars. During The Next 24 Hours you may add the following to the above: Hot cereal, plain toast, bread, rolls, crackers Plain noodles, rice, mashed potatoes, chicken noodle or rice soup Unsweetened canned fruit (avoid pineapple), bananas Limit fat intake to less than 15 grams per day by avoiding margarine, butter, oils, mayonnaise, sauces, gravies, fried foods, peanut butter, meat, poultry and fish. Limit fiber; avoid raw or cooked vegetables, fresh fruits (except bananas) and bran cereals. Limit caffeine and chocolate. No spices or seasonings except salt. During The Next 24 Hours Gradually resume a normal diet, as you feel better and your symptoms lessen. Follow Up with your doctor or as advised if you are not improving over the next two days. If you were asked to bring a specimen from home, bring the sample on the day of collection. You may call in 2 days (or as directed) for the results. Get Prompt Medical Attention if any of the following occur: Increasing abdominal pain or constant lower right abdominal pain Continued vomiting (unable to keep liquids down) Frequent diarrhea (more than 5 times a day) Blood in vomit or stool (black or red color) Reduced oral intake Dark urine, reduced urine output Weakness, dizziness, fainting Drowsiness, confusion, stiff neck or seizure Fever of 100.4F (38C) oral or higher, not better with fever medication New rash Your exam today shows that you are . During , it is normal to develop tender swollen breasts, frequent urination and mild vaginal discharge. During the first three months, nausea is common. Guidelines For A Healthy : To ensure that your baby is born healthy there are certain things that you can do: When you feel tired, you should REST. This is especially true in the later months of . Your body needs more FLUIDS than you may be used to: You should drink 8-10 glasses of juice, milk or water. Eat well-balanced MEALS at regular intervals to supply your body with enough protein. You can expect a total weight gain of about 30 pounds during the . Do not try to diet or lose weight while you are . Because of the extra nutritional needs during , take one VITAMIN daily. Do not take any other MEDICINE during your (prescribed or mffb-nbi-owgwibt) unless your doctor specifically recommends this. Many drugs can have harmful effects on the growing baby. If NAUSEA or VOMITING become a problem, avoid greasy and fried foods. Eat several smaller meals throughout the day rather than three large meals. If you SMOKE, you must stop. The nicotine you breathe in goes right to the baby. Stay away from ALCOHOL, even in moderate amounts. Daily drinking will harm your baby and can cause permanent brain damage. RECREATIONAL DRUGS are harmful, especially cocaine, crack, and heroin. Marijuana should also be avoided. If you were using recreational drugs or prescribed medicine when you found out that you were , talk to your doctor about possible effects on the fetus. Follow Up: Call to arrange for care. This can be provided by your family doctor, an motion picture actor ( specialist) or a primary care clinic. Get Prompt Medical Attention if any of the following occur: Vaginal bleeding Moderate or severe abdominal or back pain Excessive vomiting, unable to keep any fluids down for six hours Burning with urination Headache, dizziness or rapid weight gain Hyperemesis Of Hyperemesis of is a severe form of "morning sickness", where the vomiting is excessive and may cause dehydration and chemical imbalances in the body. It occurs in about 1% of pregnancies, and is usually worse during the 10-12th week of . It gets better by the 16th week. Its cause is not well understood, but may be related to rising hormone levels early in the . It can be a serious threat to mother and fetus if dehydration becomes severe. Therefore, follow the advice below carefully. If symptoms are severe and not controlled by home measures, intravenous fluids and admission to the hospital may be needed. Home Care: 1) Activity a. After awakening from sleep, remain in bed for 15 minutes before getting up. 2) Diet a. Eat frequent small meals rather than 3 large meals. b. A diet high in carbohydrates (starches) and fiber is best. Avoid greasy or spicy foods. c. If you are having trouble keeping down solid foods, drink frequent, small amounts of liquids with electrolytes, such as broth or sports drinks. If nausea and vomiting continue, rest your stomach by waiting 1-2 hours before trying to drink again. d. Keep a log of the foods you eat and how they affect your symptoms. Avoid foods that trigger your symptoms. e. Keep Saltine crackers at the bedside. If you are nauseated upon awakening, eat some crackers or dry toast before getting out of bed. 3) Medicine a. In general, it is best to avoid strong medicines during , especially during the first three months. The effect on the growing baby is not always known and these could cause harm. Your doctor will recommend a prescription medicine only when the symptoms you are having (vomiting and dehydration) are more dangerous to the baby than the small risk of using the medicine. b. Taking Vitamin B6 (pyridoxine), 10-25 mg daily is safe and may be helpful to reduce nausea. c. Check with your doctor before taking any other hrsy-wep-svsnqbb or herbal medicines during your . Follow Up: With your doctor within the next few days or as instructed by this facility. Get Prompt Medical Attention if any of the following occur: -- Unable to keep any clear liquids down over a six-hour period -- Worsening weakness, dizziness or fainting occurs -- No weight gain over a two-week period -- Severe constant lower right abdominal pain -- Fever, chills or frequent diarrhea Bladder Infection,Female (Adult) A bladder infection ("cystitis" or "UTI") usually causes a constant urge to urinate and a burning when passing urine. Urine may be cloudy, smelly or dark. There may be pain in the lower abdomen. A bladder infection occurs when bacteria from the vaginal area enter the bladder opening (urethra). This can occur from sexual intercourse, wearing tight clothing, dehydration and other factors. Home Care: Drink lots of fluids (at least 6-8 glasses a day, unless you must restrict fluids for other medical reasons). This will force the medicine into your urinary system and flush the bacteria out of your body. Avoid sexual intercourse until your symptoms are gone. Avoid caffeine, alcohol and spicy foods. These can irritate the bladder. A bladder infection is treated with antibiotics. You may also be given Pyridium (generic = phenazopyridine) to reduce the burning sensation. This medicine will cause your urine to become a bright orange color. The orange urine may stain clothing. You may wear a pad or panty-liner to protect clothing. Preventing Future Infections: Always wipe from front to back after a bowel movement. Keep the genital area clean and dry. Drink plenty of fluids each day to avoid dehydration. Both sexual partners should wash before intercourse. Urinate right after intercourse to flush out the bladder. Wear cotton underwear and cotton-lined panty hose; avoid tight-fitting pants. If you are on control pills and are having frequent bladder infections, discuss with your doctor. Follow Up: Return to this facility or see your doctor if ALL symptoms are not gone after three days of treatment. Get Prompt Medical Attention if any of the following occur: Fever of 100.4F (38C) or higher, or as directed by your healthcare provider No improvement by the third day of treatment Increasing back or abdominal pain Repeated vomiting; unable to keep medicine down Weakness, dizziness or fainting Vaginal discharge Pain, redness or swelling in the labia (outer vaginal area) Marijuana Abuse Marijuana is the most widely used illegal drug in the [place]. It is called by various names such as pot, weed, blunts, grass, reefer, ganja, hash, hashish. It is usually smoked but can be mixed with foods or brewed as a tea. It is sometimes sold with PCP (Krishna Dust) or amphetamine mixed in it. These drugs can cause other harmful side effects. Marijuana can cause the following effects: Changes in mood (stimulated, happy, drowsy, depressed, paranoid) Hallucinations Increased heart rate and blood pressure Increased appetite Time distortion, difficulty concentrating, impaired memory Lung damage (similar to cigarettes with chronic cough, wheezing, frequent colds and bronchitis) You can become psychologically dependent on marijuana. That means the craving to use the drug is emotional or psychological rather than due to physical withdrawal. Is Marijuana Running Your Life? Here are some of the signs: Relying on marijuana to feel good, forget problems, deal with stress or to relax Wanting to be alone most of the time or only with others who use drugs Losing interest in things that used to be important Changes in school or job performance or attendance Spending a lot of time thinking about how to get marijuana Stealing or selling your things so you can buy marijuana Unable to stop using even though you may want to quit Increasing anxiety, anger,or depression Sleeping too much, changes in eating habits (weight loss or gain) Needing to use more to get the same effect Home Care Once you have become addicted to any drug, quitting is hard to do. Most people find they can't quit without help. So, dont try to do this alone. Talk to someone you trust who can support you. Seek professional help. Avoid people and places where drugs are used. That only increases the temptation to use. Follow Up with your doctor or as advised by our staff. For more information or a referral to a treatment center in your area, contact: Your local mental health center or the National Alcohol and Substance Abuse Information Center (794)-200-1838 www.addictioncareoptions.com National [employer] [place] on Alcoholism and Drug Dependence 743-854-LGAC www.ncadd.org Marijuana Anonymous 996-302-0377 www.marijuana-anonymous.org Get Prompt Medical Attention if any of the following occur: You feel extreme depression, fear, anxiety, or anger toward yourself or others You feel out of control You feel that you may try to harm yourself or another Hypokalemia Hypokalemia means a low level of potassium in the blood. This most often occurs in patients who take diuretics (water pills). It can also occur due to severe vomiting or diarrhea. A mild case usually causes no symptoms. It is only found with blood testing. More severe potassium loss causes generalized weakness, muscle or abdominal cramping, heart palpitations (rapid or irregular heartbeats) and low blood pressure. Home Care: 1) Take any potassium supplements prescribed. 2) Eat foods rich in potassium. The highest amount is found in artichoke, baked potatoes, spinach, cantaloupe, honeydew melon, cod, halibut, salmon, and scallops. White, red, or moreno beans are also very good sources. A modest amount is found in orange juice, bananas, carrots, and tomato juice. 3) Certain types of diuretics (water pills), such as Lasix (furosemide), require that you take potassium supplements for as long as you take the diuretic pills. If you are taking a diuretic, discuss the need for potassium supplements with your doctor. Follow Up with your doctor for a repeat blood test within the next week or as advised by our staff. Get Prompt Medical Attention if any of the following occur: -- Increased weakness -- Feeling dizzy -- Irregular heartbeat, extra beats or very fast heart rate -- Fainting spell How To Quit Smoking Smoking is one of the hardest habits to break. About half of all those who have ever smoked have been able to quit, and most of those (about 70%) who still smoke want to quit. Here are some of the best ways to stop smoking. Keep Trying: It takes most smokers about 8 tries before they are finally able to fully quit. So, the more often you try and fail, the better your chance of quitting the next time! So, don't give up! Go Cold [place]: Most ex-smokers quit cold turkey. Trying to cut back gradually doesn't seem to work as well, perhaps because it continues the smoking habit. Also, it is possible to fool yourself by inhaling more while smoking fewer cigarettes. This results in the same amount of nicotine in your body! Get Support: Support programs can make an important difference, especially for the heavy smoker. These groups offer lectures, methods to change your behavior and peer support. Call the free national Quitline for more information. 085-UIFT-POX (307-790-9169). Low-cost or free programs are offered by many hospitals, local chapters of the [place] [employer] (144-836-2074) and the [employer] (126-271-1217). Support at home is important too. Non-smokers can help by offering praise and encouragement. If the smoker fails to quit, encourage them to try again! Wcnt-Fpr-Ratxdag Medicines: For those who can't quit on their own, Nicotine Replacement Therapy (NRT) may make quitting much easier. Certain aids such as the nicotine patch, gum and lozenge are available without a prescription. However, it is best to use these under the guidance of your doctor. The skin patch provides a steady supply of nicotine to the body. Nicotine gum and lozenge gives temporary bursts of low levels of nicotine. Both methods take the edge off the craving for cigarettes. WARNING: If you feel symptoms of nicotine overdose, such as nausea, vomiting, dizziness, weakness, or fast heartbeat, stop using these and see your doctor. Prescription Medicines: After evaluating your smoking patterns and prior attempts at quitting, your doctor may offer a prescription medicine such as bupropion (Zyban, Wellbutrin), varenicline (Chantix, Champix), a niocotine inhaler or nasal spray. Each has its unique advantage and side effects which your doctor can review with you. Health Benefits Of Quitting: The benefits of quitting start right away and keep improving the longer you go without smokin minutes: blood pressure and pulse return to normal 8 hours: oxygen levels return to normal 2 days: ability to smell and taste begins to improve as damaged nerves start to regrow 2-3 weeks: circulation and lung function improves 1-9 months: decreased cough, congestion and shortness of breath; less tired 1 year: risk of heart attack decreases by half 5 years: risk of lung cancer decreases by half; risk of stroke becomes the same as a non-smoker For information about how to quit smoking, visit the following links: National Cancer [place] , Clearing the Air, Quit Smoking Today - an online booklet. http://www.smokefree.gov/pubs/clearing_the_air.pdf Smokefree.gov http://smokefree.gov/ QuitNet http://www.quitnet.com/ Ondansetron Oral disintegrating tablet What is this medicine? ONDANSETRON (on HELGA se alex) is used to treat nausea and vomiting caused by chemotherapy. It is also used to prevent or treat nausea and vomiting after surgery. How should I use this medicine? These tablets are made to dissolve in the mouth. Do not try to push the tablet through the foil backing. With dry hands, peel away the foil backing and gently remove the tablet. Place the tablet in the mouth and allow it to dissolve, then swallow. While you may take these tablets with water, it is not necessary to do so. Talk to your credit negotiator regarding the use of this medicine in children. Special care may be needed. What side effects may I notice from receiving this medicine? Side effects that you should report to your doctor or health child care worker as soon as possible: allergic reactions like skin rash, itching or hives, swelling of the face, lips, or tongue breathing problems dizziness fast or irregular heartbeat feeling faint or lightheaded, falls fever and chills swelling of the hands and feet tightness in the chest Side effects that usually do not require medical attention (report to your doctor or health child care worker if they continue or are bothersome): constipation or diarrhea headache What may interact with this medicine? Do not take this medicine with any of the following medications: -apomorphine -cisapride -dofetilide -dronedarone -pimozide -thioridazine -ziprasidone This medicine may also interact with the following medications: -carbamazepine -phenytoin -rifampicin -tramadol -other medicines that prolong the QT interval (cause an abnormal heart rhythm) What if I miss a dose? If you miss a dose, take it as soon as you can. If it is almost time for your next dose, take only that dose. Do not take double or extra doses. Where should I keep my medicine? Keep out of the reach of children. Store between 2 and 30 degrees C (36 and 86 degrees F). Throw away any unused medicine after the expiration date. What should I tell my health care provider before I take this medicine? They need to know if you have any of these conditions: heart disease history of irregular heartbeat liver disease low levels of magnesium or potassium in the blood an unusual or allergic reaction to ondansetron, granisetron, other medicines, foods, dyes, or preservatives or trying to get breast-feeding What should I watch for while using this medicine? Check with your doctor or health child care worker as soon as you can if you have any sign of an allergic reaction. Nitrofurantoin, Nitrofurantoin, Macrocrystalline Oral capsule What is this medicine? NITROFURANTOIN (an [place]) is an antibiotic. It is used to treat urinary tract infections. How should I use this medicine? Take this medicine by mouth with a glass of water. Follow the directions on the prescription label. Take this medicine with food or milk. Take your doses at regular intervals. Do not take your medicine more often than directed. Do not stop taking except on your doctor's advice. Talk to your credit negotiator regarding the use of this medicine in children. While this drug may be prescribed for selected conditions, precautions do apply. What side effects may I notice from receiving this medicine? Side effects that you should report to your doctor or health child care worker as soon as possible: allergic reactions like skin rash or hives, swelling of the face, lips, or tongue chest pain cough difficulty breathing dizziness, drowsiness fever or infection joint aches or pains pale or blue-tinted skin redness, blistering, peeling or loosening of the skin, including inside the mouth tingling, burning, pain, or numbness in hands or feet unusual bleeding or bruising unusually weak or tired yellowing of eyes or skin Side effects that usually do not require medical attention (report to your doctor or health child care worker if they continue or are bothersome): dark urine diarrhea headache loss of appetite nausea or vomiting temporary hair loss What may interact with this medicine? antacids containing magnesium trisilicate probenecid quinolone antibiotics like ciprofloxacin, lomefloxacin, norfloxacin and ofloxacin sulfinpyrazone What if I miss a dose? If you miss a dose, take it as soon as you can. If it is almost time for your next dose, take only that dose. Do not take double or extra doses. Where should I keep my medicine? Keep out of the reach of children. Store at room temperature between 15 and 30 degrees C (59 and 86 degrees F). Protect from light. Throw away any unused medicine after the expiration date. What should I tell my health care provider before I take this medicine? They need to know if you have any of these conditions: anemia diabetes [id number] dehydrogenase deficiency kidney disease liver disease lung disease other chronic illness an unusual or allergic reaction to nitrofurantoin, other antibiotics, other medicines, foods, dyes or preservatives or trying to get breast-feeding What should I watch for while using this medicine? Tell your doctor or health child care worker if your symptoms do not improve or if you get new symptoms. Drink several glasses of water a day. If you are taking this medicine for a long time, visit your doctor for regular checks on your progress. If you are diabetic, you may get a false positive result for sugar in your urine with certain brands of urine tests. Check with your doctor. You have been given the following additional information: Vomiting (6Y-Adult) Diarrhea, Unk Cause (Adult) Report Pendg , New Dx Hyperemesis Gravidarum Bladder Infection, Female (Adult) Marijuana Abuse Hypokalemia Smoking Cessation Ondansetron Oral disintegrating tablet Nitrofurantoin, Nitrofurantoin, Macrocrystalline Oral capsule Do not work for three days. (Electronically signed by Reed Potter DO 03/24/2017 22:01)
== END 2017-03-24 19:30 | disposition home or self-care (01) ==
LOC: ED SRH 17:02
DX: O21.1 Hyperemesis gravidarum with metabolic disturbance (principal); O23.11 Infections of bladder in pregnancy, first trimester; O99.321 Drug use complicating pregnancy, first trimester; F12.10 Cannabis abuse, uncomplicated; O99.331 Smoking (tobacco) complicating pregnancy, first trimester; F17.210 Nicotine dependence, cigarettes, uncomplicated; D72.829 Elevated white blood cell count, unspecified; R19.7 Diarrhea, unspecified; K21.9 Gastro-esophageal reflux disease without esophagitis
CPT/HCPCS: 90004; 90100; 90197; 90469; 91643; 92010; 92235; 92530; 92760; 92761; 92762; 92763; 92764; 92765; 92766; 92767; 94060; 95059